=== PATIENT | female | born 1990 | race Asian ===

== ENCOUNTER 2017-01-22 09:17 | Inpatient (IN) | payer BC, OTHER ==
--- NOTE | 2017-01-21 21:55 | PDOC.LDHP ---
Labor and Delivery H&P Chief complaint: scheduled section HPI: 26 yo G1 @ 36w5d by LMP c/w 7 week sono who presents for primary CD due to posterior placenta previa. Pt received steroids, completed on 12/28/16 due to episode of vaginal bleeding. Antepartum course also complicated by A1DM, otherwise benign. Current gestational age (weeks): 36 Due date: 02/14/17 Dating criteria: last menstrual period Grav: 1 Para: 0 Current complications: gestational diabetes, other (posterior placenta previa ) Abnormal US findings: Yes Past Medical History: Denies Current medications: pre- vitamins Previous surgical history: none Allergies/Adverse Reactions: Allergies Allergy/AdvReac Type Severity Reaction Status Date / Time No Known Allergies Allergy Verified 12/26/16 12:07 Social history: none - Physical Exam General: NAD Heart: RRR Abdomen: gravid Extremeties: no edema FHT: category 1 (130s, mod nilson, +accels, no decels ) [place] contractions every: q7+ min - OB Labs Blood type: A RH: positive HIV: negative RPR: negative HEPSAg: negative 1 hour GCT: positive 3 hour GTT: positive GBS: negative Urine drug screen: not done Additional Labs: Rubella immune - Assessment 36w5d IUP Placenta previa A1DM - Plan Plan: to OR for section, informed consent obtained, anesthesia consult for pain management -: s/p BMTZ course on 12/28/16 2 units of PRBCs on hold due to previa.
[2017-01-22] MEDS: Lactated Ringer's 1,000 ML IV SCH ×2 (09:55→11:45)
[2017-01-22 10:25] VITALS: BMI 24.3
[2017-01-22] MEDS ORDERED: Bicitra 30 ML UDCUP PO SCH (10:33)
[2017-01-22 11:49] LABS: Hematocrit 42.2 % (36.0-47.0); Red Blood Cell (RBC) Count 4.59 mill/uL (4.20-5.40); White Blood Cell (WBC) Count 6.8 thou/uL (4.8-10.8)
[2017-01-22] MEDS ORDERED: ePHEDrine/0.9% NaCl/PF SYRINGE 50 mg/10 ml ONE (12:07)
[2017-01-22] MEDS ORDERED: Ondansetron HCl/PF 4 MG/2 ML Vial ONE (12:07)
[2017-01-22] MEDS ORDERED: Oxytocin 10 UNITS/ML VIAL ONE ×2 (12:07→12:52)
--- NOTE | 2017-01-22 13:08 | PDOC.OPDEL ---
OB Operative/Delivery Note Delivery Dr/Surgeon: Marysol Tan, DO Assist: Doug Freeman MD Pre-Delivery Diagnosis: scheduled section (36w5d IUP, placenta previa, s/p BMTZ course) Procedure/Post Delivery Dx: primary low transverse CS Weeks gestation: 36 Anesthesia: spinal - Findings A Sex: female - 5 min: 9 (apgars 9/9) - Additional Findings/Plan Placenta delivered: spontaneous findings: low transverse hysterotomy without extension, normal uterus, normal tubes, normal ovaries, other (placenta with cord insertion near edge of placenta ) Estimated blood loss: 600 cc Compilations/Other Findings: Infant delivered in cephalic presentation without difficulty. Posterior placenta previa IVF 900 cc, UOP 100 cc Dictation # [id number] Post delivery plan: routine recovery
[2017-01-22] MEDS ORDERED: Promethazine HCl 25 MG SUPP PR PRN (13:19)
[2017-01-22] MEDS ORDERED: Ondansetron HCl/PF 4 MG/2 ML Vial IVP PRN ×2 (13:19→14:27)
[2017-01-22] MEDS ORDERED: Naloxone HCl 0.4 mg/ml Vial IV PRN (13:19)
[2017-01-22] MEDS ORDERED: Eucerin (Mineral Oil/Petrolatum,White) 30 gm Jar TOP PRN (13:19)
[2017-01-22] MEDS ORDERED: Promethazine HCl 25 MG/ML VIAL IM PRN ×2 (13:19→14:27)
[2017-01-22] MEDS ORDERED: Naloxone HCl 0.4 mg/ml Vial IVP PRN ×2 (13:19)
[2017-01-22] MEDS ORDERED: diphenhydrAMINE HCl 50 MG/ML 1 ML VIAL IVP PRN (13:19)
[2017-01-22] MEDS ORDERED: Communication Order-Pharmacy FS SCH (13:30)
[2017-01-22] MEDS ORDERED: Ketorolac Tromethamine 30 MG/ML VIAL ONE (14:17)
[2017-01-22] MEDS: Ketorolac Tromethamine 30 MG/ML VIAL IVP PRN (14:20)
[2017-01-22] MEDS ORDERED: Simethicone Chewable 80 MG TAB PO PRN (14:27)
[2017-01-22] MEDS ORDERED: LR w/ Pitocin 40 units/1000 ML BAG IV SCH (14:27)
[2017-01-22] MEDS ORDERED: diphenhydrAMINE HCl 25 MG CAP PO PRN (14:27)
[2017-01-22] MEDS ORDERED: Bisacodyl 10 MG SUPP PR PRN (14:27)
[2017-01-22] MEDS ORDERED: Acetaminophen 325 MG TAB PO PRN (14:27)
[2017-01-22] MEDS ORDERED: Misoprostol 200 MCG TAB PR SCH (14:45)
--- NOTE | 2017-01-22 14:57 | OP ---
PREOPERATIVE DIAGNOSES: 1. A 36 week, 5 day intrauterine . 2. Complete posterior placenta previa. 3. Gestational diabetes (class A1c). POSTOPERATIVE DIAGNOSES: 1. A 36 week, 5 day intrauterine . 2. Complete posterior placenta previa. 3. Gestational diabetes (class A1c). PROCEDURE: Primary low transverse delivery via Pfannenstiel skin incision. SURGEON: Marysol Tan D.O. ONLINE RETAILER: Doug Freeman M.D. ANESTHESIA: Spinal with Duramorph. COMPLICATIONS: None. ESTIMATED BLOOD LOSS: 600 mL. INTRAVENOUS FLUIDS: 900 mL. URINE OUTPUT: 100 mL. FINDINGS: 1. Viable female infant, Apgars 9 and 9 with weight pending. 2. Normal appearing uterus, ovaries and fallopian tubes bilaterally. 3. Posterior placenta previa with cord insertion noted near the placental edge , otherwise normal appearing placenta. INDICATIONS FOR THE PROCEDURE: Ms. Marie Disla a 26-year-old G1, P0 at 36 weeks and 5 days by last menstrual period consistent with a 7-week ultrasound who is noted to have a complete posterior placenta previa. The patient was counseled and delivery was recommended to 36-37 weeks. She had undergone an admission and evaluation previously around 33 weeks, was given betamethasone course for lung maturity. The patient was then scheduled at 36 weeks and 5 days for her primary delivery. PROCEDURE IN DETAIL: The patient was brought to the operating room. Spinal anesthesia was placed using Dermabond. She was placed in supine position. She was prepped and draped in the sterile fashion and a Ragsdale catheter and SCDs were placed. The patient received Ancef prior to her being moved to the operating room for prophylaxis. An official timeout was performed. Anesthesia was assessed and proved to be adequate. Pfannenstiel skin incision was made using the scalpel, this was carried down to underlying fascial layer. The fascia was incised in midline using the scalpel and was extended using Chavarria scissors. Superior aspect of the fascial incision was grasped using Sophie clamps, tented upward and dissected free from the underlying rectus abdominis muscles. The same was performed to the inferior aspect of the fascial incision. The rectus abdominis muscles were bluntly dissected and the peritoneum was entered bluntly. This incision was extended using blunt dissection. Matthew O retractor was placed into the abdomen noting a normal appearing lower uterine segment. A low transverse hysterotomy was made using the scalpel and extended using blunt dissection. The amniotic membranes were ruptured, noting clear amniotic fluid. Infant was delivered in cephalic presentation. 's cord was clamped and cut. Infant was handed to awaiting Neonatology team. Cord sample and cord blood were obtained. The placenta was delivered spontaneously intact. Uterus was cleared of all clot and debris. The hysterotomy was closed in a running locking fashion using #1 Monocryl to create hemostasis. An imbrication layer was performed in a running fashion as well. The hysterotomy site was hemostatic after closure. The bilateral fallopian tubes and ovaries were evaluated and appeared normal. Matthew O retractor was removed from the abdomen. The peritoneum was closed in a running fashion using 3-0 Vicryl. The rectus abdominis muscles were hemostatic. The fascia was closed in a running fashion using 0 PDS. The subcutaneous layer was copiously irrigated, hemostatic using the Bovie. Subcutaneous layer was closed using 3-0 Vicryl. The skin was closed using 4-0 Monocryl and Dermabond. The patient tolerated procedure well. There were no complications. All counts were correct x3. Mother and baby were both transferred to routine recovery. [facility]ATR[facility] CENTERDaphney
[2017-01-22] MEDS: Ibuprofen 800 MG TAB PO SCH (16:32)
[2017-01-22] MEDS ORDERED: FLU VACC QS2017-18 36 mo. & older 0.5 ML SYRINGE IM ONE (21:00)
[2017-01-23] MEDS ORDERED: HYDROcodone/Acetaminophen 5/325 mg Tablet PO PRN (01:30)
[2017-01-23] MEDS ORDERED: Zolpidem Tartrate 5 MG TAB PO PRN (01:30)
[2017-01-23] MEDS: Ketorolac Tromethamine 30 MG/ML VIAL IVP PRN (04:11)
[2017-01-23] MEDS: Lactated Ringer's 1,000 ML IV SCH ×2 (04:12→12:20)
[2017-01-23 05:34] LABS: #Lymphocytes 1.5 thou/uL (1.20-3.40); #Monocytes 0.8 thou/uL (0.11-0.59); #Neutrophils 8.8 thou/uL (1.40-6.50); %Basophils 0.2 % (0.0-1.0); %Eosinophils 0.4 % (0.0-10.0); %Lymphocytes 13.5 % (21.0-51.0); %Monocytes 7.4 % (0.0-10.0); Hematocrit 32.2 % (36.0-47.0); Mean Platelet Volume 8.7 fL (7.4-10.4); Red Blood Cell (RBC) Count 3.48 mill/uL (4.20-5.40); White Blood Cell (WBC) Count 11.2 thou/uL (4.8-10.8)
[2017-01-23] MEDS: Ibuprofen 800 MG TAB PO SCH ×4 (07:10→21:49)
--- NOTE | 2017-01-23 08:23 | PDOC.PP ---
Post Progress Note Post Day #: 1 -: Doing well. Minimal lochia. Breast feeding. Pain improved with PRN meds. PO intake tolerated: yes Flatus: yes Ambulation: yes Vital Signs (12 hours) Temp Pulse Resp BP 01/23/17 08:01 98.1 F 69 20 99/54 L 01/23/17 04:15 99.5 F 71 14 110/55 L 01/23/17 00:35 98.0 F 66 16 127/61 Weight Weight 133 lb - Physical Examination General: NAD Cardiovascular: no m/r/g, RRR Respiratory: clear to ausculation bilateral Abdominal: no distention, appropriately TTP Deviation from normal: incision covered with dressing, c/d/i Fundus firm & at: below umbilius Extremities: negative homans (B) Skin: no rash Neurological: no gross focal deficits Psychiatric: A&Ox3 Result Diagrams: 01/23/17 05:14 Additional Labs: Post Labs Blood Type A POSITIVE 01/22/17 09:55 Hep Bs Antigen Non-Reactive S/CO (NonReactive) 01/22/17 09:55 (1) delivery delivered Code(s): O82 - ENCOUNTER FOR DELIVERY WITHOUT INDICATION Status: Acute - Assessment/Plan Doing well post . Continue routine post op care.
[2017-01-23] MEDS: Prenatal Vitamin 1 TAB PO SCH (09:48)
[2017-01-23] MEDS: HYDROcodone/Acetaminophen 5/325 mg Tablet PO PRN (09:51)
[2017-01-24] MEDS: Ibuprofen 800 MG TAB PO SCH ×3 (06:24→22:02)
[2017-01-24] MEDS: HYDROcodone/Acetaminophen 5/325 mg Tablet PO PRN (06:33)
--- NOTE | 2017-01-24 08:42 | PDOC.PP ---
Post Progress Note Post Day #: 2 -: Pain improved. Minimal lochia. Breast and formula. PO intake tolerated: yes Flatus: yes Ambulation: yes Vital Signs (12 hours) Temp Pulse Resp BP 01/24/17 07:57 98.2 F 59 L 20 121/66 01/24/17 04:30 98.3 F 67 18 105/58 L 01/24/17 04:00 98.5 F 63 20 01/24/17 00:00 98.5 F 63 20 Weight Weight 133 lb - Physical Examination General: NAD Cardiovascular: RRR Abdominal: no distention, appropriately TTP Deviation from normal: incision c/d/i with dermabond Fundus firm & at: below umbilicus Extremities: negative homans (B) Skin: no rash Neurological: no gross focal deficits Psychiatric: A&Ox3 Result Diagrams: 01/23/17 05:14 Additional Labs: Post Labs Blood Type A POSITIVE 01/22/17 09:55 Hep Bs Antigen Non-Reactive S/CO (NonReactive) 01/22/17 09:55 (1) delivery delivered Code(s): O82 - ENCOUNTER FOR DELIVERY WITHOUT INDICATION Status: Acute - Assessment/Plan Doing well post . Desires to stay until tomorrow. RTC 2 weeks incision check.
[2017-01-24] MEDS: Lactated Ringer's 1,000 ML IV SCH ×2 (09:30→09:31)
[2017-01-24] MEDS: Prenatal Vitamin 1 TAB PO SCH (09:33)
[2017-01-24] MEDS: HYDROcodone/Acetaminophen 10/325 mg Tablet PO PRN ×2 (12:20→18:14)
[2017-01-25] MEDS: HYDROcodone/Acetaminophen 10/325 mg Tablet PO PRN (04:42)
[2017-01-25] MEDS: Ibuprofen 800 MG TAB PO SCH (06:20)
[2017-01-25 08:01] VITALS: BP 109/67; TEMP 98.4
--- NOTE | 2017-01-25 08:01 | DIS ---
DATE OF ADMISSION: 01/21/2017 DATE OF DISCHARGE: 01/25/2017 PRINCIPAL PROCEDURE: Primary section for placenta previa. OTHER DIAGNOSIS: Gestational diabetes (class A1). REVIEW OF HOSPITAL COURSE: In brief, this is a patient who was admitted by Dr. Marysol Tan for a primary low-transverse section due to a complete posterior previa. Her EGA was 36 weeks a nd 5 days. For full details, please turn to the dictation by Dr. Tan. She had an unremarkable p ostpartum/post OP course. I evaluated the patient on 01/25/2017 at bedside and found her to be in n o acute distress. On vital sign assessment, temperature ranged from 98.1-99.1, blood pressure range d from 113/57-132/59, pulse was in the 50s to 70s. Abdominal incision was closed with 4-0 Monocryl and Dermabond. As there was no evidence of metritis or of abnormal vaginal bleeding on 01/25/2017, the decision was made to discharge her home, per Dr. Tan, with prescriptions given by her. Pres riptions for post- outpatient care include Motrin and [place] 10/325. Those were written by Dr. Tan. I instructed the patient to follow up in [address] Tan for routine postoperative care and she voiced understanding. On laboratory assessment, the patient's hematocrit value was 32, down from the original v alue of 42. Hepatitis B surface antigen was nonreactive and hepatitis B surface antibody was reacti ve showing prior immunity. Plan was to discharge her on 01/25/2017 with [address] Dori Tan.
[2017-01-25] MEDS: Prenatal Vitamin 1 TAB PO SCH (09:47)
== END 2017-01-25 12:20 | disposition home or self-care (01) | DRG 766 ==
LOC: L&D 09:17 → 3SW 15:31 → EDSTATUS 02-14 20:05
PROVIDERS: ADMIT Obstetrics & Gynecology; ATTEND Obstetrics & Gynecology
PROC: 10D00Z1 Extraction of Products of Conception, Low, Open Approach (ICD-10-PCS; principal; 2017-01-22)
PROC: 10907ZC Drainage of Amniotic Fluid, Therapeutic from Products of Conception, Via Natural or Artificial Opening (ICD-10-PCS; 2017-01-22)
DX: O44.03 Complete placenta previa NOS or without hemorrhage, third trimester (principal); O24.420 Gestational diabetes mellitus in childbirth, diet controlled; Z37.0 Single live birth; Z3A.36 36 weeks gestation of pregnancy
CPT/HCPCS: 36415; 85025; 85027; 86706; 86850; 86900; 86901; 87340; 88307; J1885; J2274; J2405; J2590